=== PATIENT | female | born 1975 | race Caucasian/White ===

== ENCOUNTER → 2017-05-29 | Outpatient (CLI) | payer OTHER ==
[~2017-05-29] MED LIST: BEYAZ 28 TABLE1 EACH PO; LEVSIN0.125 MG PO; PROTONIX40 MG PO
--- NOTE | 2017-05-29 18:31 | Diagnostic Imaging Report ---
History: Syncope Comparison studies: None Technique: Sagittal T2; axial DWI, FLAIR, MPGR, T1, Coronal FLAIR. Intravenous contrast: None Findings: Scalp: Normal in signal . No masses . Bone marrow: Normal in signal intensity. Brain sulci: Prominent Ventricles: Normal in size . No hydrocephalus . Parenchyma: No abnormal signal. No masses, hemorrhage, acute or chronic vascular insults. Suprasellar region: No abnormalities. Craniocervical junction: Patent foramen magnum. No Chiari malformation . Vessels: Normal flow-voids in the arteries and sinuses. IMPRESSION: No acute intracranial abnormality. Mild generalized cerebral volume loss, advanced for patient's given age. Preliminary report was given by neuroradiology fellow Dr. Flores at 6:30 PM on 05/29/2017. I have reviewed the images and agree with the findings in the preliminary report. Signed by: Dr. Sarah Browne M.D. on 05/29/2017 8:09 PM
== END ==
LOC: MRI 17:13
PROVIDERS: ATTEND Family Medicine
DX: R55 Syncope and collapse (principal); R51 Headache; Z82.3 Family history of stroke
CPT/HCPCS: 70551

== ENCOUNTER 2017-07-29 11:54 | Emergency (ER) | payer OTHER ==
[~2017-07-29] VITALS: Ht 172.7 cm; Wt 78.5 kg
--- OUTSIDE RECORDS SUMMARY | 2017-07-29 11:57 | XMS REPORT ---
Author Author [facility] Address Unknown Phone Unavailable Care Team Providers Care Cull Grader Name Role Phone ELLIE ENG Unavailable Unavailable KATELIN RIVERA Unavailable Unavailable JEM MUSA Unavailable Unavailable Problems This patient has no known problems. Allergies, Adverse Reactions, Alerts This patient has no known allergies or adverse reactions. Medications This patient has no known medications. Results Test Description Test Time Test Comments Text Results Atomic Results Result Comments MRI BRAIN WO [place] [address] Patient Name: NANCY VELA MR #: [id number] : 1975 Age/Sex: 41/F Req # : [id number] Adm Physician: Ordered by: ELLIE ENG DO Report #: [id number] Location: MRI Room/Bed: Procedure: [id number] MRI/MRI BRAIN WO Exam Date: Exam Time: REPORT STATUS: Signed History: Syncope Comparison studies: None Technique: Sagittal T2; axial DWI, FLAIR, MPGR, T1, Coronal FLAIR. Intravenous contrast: None Findings: Scalp: Normal in signal . No masses . Bone marrow: Normal in signal intensity. Brain sulci: Prominent Ventricles: Normal in size . No hydrocephalus . Parenchyma: No abnormal signal. No masses, hemorrhage, acute or chronic vascular insults. Suprasellar region: No abnormalities. Craniocervical junction: Patent foramen magnum. No Chiari malformation . Vessels: Normal flow-voids in the arteries and sinuses. IMPRESSION: No acute intracranial abnormality. Mild generalized cerebral volume loss, advanced for patient's given age. Preliminary report was given by neuroradiology fellow Dr. Flores at 6:30 PM on 05/29/2017. I have reviewed the images and agree with the findings in the preliminary report. Signed by: Dr. Sarah Mcgregor M.D. on 05/29/2017 8:09 PM Dictated By: SARAH MCGREGOR MD 08 Transcribed By: PEDRO LUIS on 05/29/172008 COPY TO: ELLIE ENG DO CHEST 2 VIEWS [place] [address] Patient Name: NANCY VELA MR #: [id number] : 1975 Age/Sex: 41/F Req # : [id number] Adm Physician: Ordered by: KATELIN RIVERA MD Report #: [id number] Location: OR Room/Bed: Procedure: [id number] DX/CHEST 2 VIEWS Exam Date: 01/16/16 Exam Time : 949 REPORT STATUS: Signed PROCEDURE: X-RAY CHEST, TWO VIEWS COMPARISON: None. INDICATIONS: PREOPERATIVE CHEST XRAY FOR GALLBLADDER AND APPENDIX REMOVAL FINDINGS: LUNGS: No consolidations or edema. PLEURA: No effusions or pneumothorax. HEART MEDIASTINUM: The heart is within normal size-limits. BONES SOFT TISSUES: No acute findings. CONCLUSION: No acute thoracic abnormality. Americo Jc D.O. Dictated by: Americo Jc D.O. on 01/16/2016 at 10 :24 Electronically approved by: Americo Jc D.O. on 01/16/2016 at 10: 24 Dictated By: AMERICO JC DO 1010 Transcribed By: CLAUDIA on 01/16/16 1024 COPY TO: KATELIN RIVERA MD HEPTOBILIARY W PHARM [place] [address] Patient Name: NANCY VELA MR #: [id number] : 1975 Age/Sex: 41/F Req #: [id number] Adm Physician: Ordered by: JEM MUSA MD Report #: [id number] Location: [place] Room/Bed: Procedure: [id number] NM/HEPTOBILIARY W PHARM Exam Date: Exam Time: REPORT STATUS: Signed Hepatobiliary Scan with Gallbladder Ejection Fraction Clinical information: Abdominal pain; elevated liver enzymes Report: Following intravenous administration of approximately 5.5 millicuries of Tc-99m mebrofenin, dynamic images of the abdomen in the anterior projection were obtained through 30 minutes. Sincalide (CCK analog) 1.5 micrograms was administered intravenously over 30 minutes with additional imaging for determination of gallbladder ejection fraction. Perfusion to the liver is normal. Extraction of tracer from the blood pool by the liver parenchyma is normal. Tracer is seen promptly within the biliary tract. The gallbladder begins to fill by 15 minutes post- injection of tracer and fills adequately. Tracer is seen in the small bowel by 12 minutes. The gallbladder ejection fraction with administration of sincalide is 80% (normal greater than 40%). Impression: 1. Filling of the gallbladder excludes the diagnosis of acute cystic duct obstruction/acute cholecystitis. 2. Normal gallbladder ejection fraction of 80% does not support the clinical diagnosis of chronic cholecystitis/ gallbladder dyskinesia. Dictated By: JENNIFER EISENBERG MD 1503 Transcribed By: PEDRO LUIS on 09/23/14 1501 COPY TO: JEM MUSA MD
[2017-07-29] MEDS ORDERED: ONDANSETRON HCL INJ 2 MG/ML VIAL IV STA ×2 (12:03→14:00)
[2017-07-29] MEDS ORDERED: KETOROLAC TROMETHAMINE 30 MG/ML VIAL IV STA (12:03)
[2017-07-29] MEDS ORDERED: MORPHINE SULFATE 5 MG/ML VIAL IV ONE ×2 (12:15→13:45)
[2017-07-29] MEDS ORDERED: SODIUM CHLORIDE 0.9% 1000ML 1,000 ML IV SCH (12:15)
[2017-07-29] MEDS ORDERED: MORPHINE SULFATE 2 MG/ML SYR IV NR ×2 (12:30→14:00)
[2017-07-29] MEDS ORDERED: DICYCLOMINE HCL 20 MG/2 ML VIAL IM NR (12:45)
[2017-07-29 12:53] LABS: ALANINE AMINOTRANSFERASE 14 IU/L (0-55); ALBUMIN/GLOBULIN RATIO 0.9 (0.8-2.0); ALKALINE PHOSPHATASE 90 IU/L (40-150); ANION GAP 17.1 mmol/L (8-16); BLOOD UREA NITROGEN 14 mg/dL (7-26); BUN/CREATININE RATIO 12 (6-25); CARBON DIOXIDE 19 mmol/L (22-29); CHLORIDE 104 mmol/L (98-107); CREATININE, SERUM 1.13 mg/dL (0.57-1.11); EST GLOMERULAR FILTRATION RATE 53 ML/MIN (60-); GLUCOSE 130 mg/dL (74-118); POTASSIUM 4.1 mmol/L (3.5-5.1); SODIUM 136 mmol/L (136-145)
[2017-07-29 13:28] LABS: BASOPHILS % 0.2 % (0.0-1.0); EOSINOPHILS % 0.1 % (0.0-6.0); HEMATOCRIT 37.4 % (34.2-44.1); HEMOGLOBIN 12.6 g/dL (12.0-16.0); LYMPHOCYTES # (AUTO) 1.4 (1.0-3.2); LYMPHOCYTES % 11.7 % (18.0-39.1); MEAN CORPUSCULAR HEMOGLOBIN 30.1 pg (28-32); MEAN CORPUSCULAR HGB CONC 33.7 g/dL (31-35); MEAN CORPUSCULAR VOLUME 89.5 fL (81-99); MONOCYTES # (AUTO) 0.3 (0.2-0.8); MONOCYTES % 2.3 % (4.4-11.3); NEUTROPHILS # (AUTO) 10.5 (2.1-6.9); NEUTROPHILS % 85.4 % (38.7-80.0); PLATELET COUNT 230 x10e3/uL (140-360); RED BLOOD COUNT 4.18 x10e6/uL (3.6-5.1); RED CELL DISTRIBUTION WIDTH 13.1 % (11.7-14.4)
[2017-07-29 13:34] LABS: CLARITY,URINE CLEAR (CLEAR); COLOR,URINE YELLOW (YELLOW)
[2017-07-29 13:35] LABS: KETONES,URINE 2+ (NEGATIVE); LEUKOCYTE ESTERASE ,URINE NEGATIVE (NEGATIVE); NITRITE,URINE NEGATIVE (NEGATIVE); PROTEIN,URINE DIPSTICK NEGATIVE (NEGATIVE); URINE UROBILINOGEN 0.2 mg/dL (0.2 - 1)
[2017-07-29 13:36] LABS: BILIRUBIN,URINE NEGATIVE (NEGATIVE)
[2017-07-29 13:47] LABS: RBC,URINE 0-5 /HPF (0-5)
[2017-07-29 13:48] LABS: BACTERIA,URINE RARE /HPF; EPITHELIAL CELLS,URINE RARE /LPF
--- NOTE | 2017-07-29 14:43 | Diagnostic Imaging Report ---
PROCEDURE: CT ABDOMEN AND PELVIS WITHOUT CONTRAST COMPARISON:None. INDICATIONS:Right flank pain radiating to the lower quadrant. TECHNIQUE: Stone protocol Volumetric CT abdomen and pelvis. No intravenous or enteric contrast. Multiplanar reformatted images. DLP: 605.32 FINDINGS: Clear lung bases. No pleural effusions. Normal heart size. The liver, gallbladder, pancreas and spleen are normal. Adrenal glands, and urinary bladder and uterus are normal. Kidneys: Left: Normal. No stones. Right: Mild hydronephrosis and moderate hydroureter. 0.3 cm stone at the ureterovesicular junction (image 156, series 3). There is more prominent hydroureter at the proximal to mid segment extending to the level of the pelvic inlet, where the ureter extends posterior to a surgical clip (image 116, series 3). Bowel: Normal caliber. Appendectomy. Peritoneum: Normal Vasculature: Normal caliber Lymph nodes: Normal Skeleton: Intact. Soft tissues: Tiny fat containing umbilical hernia. 2 cm nodule at the posterior aspect of the right breast (image 14, series 3). CONCLUSION: 1. 0.3 cm stone at the right ureterovesicular junction. Associated moderate hydroureter and mild hydronephrosis. There is an interval change in the caliber of hydroureter at the level of the pelvic inlet, within a region of postoperative change likely associated with remote appendectomy. This may be a superimposed area of ureteral stenosis. 2. 2 cm right breast nodule. Please correlate with physical exam and diagnostic workup as clinically directed. Dictated by: Tristen Crane M.D. on 07/29/2017 at 14:44 Electronically approved by: Tristen Crane M.D. on 07/29/2017 at 14:44
[2017-07-29 16:20] VITALS: BP 103/67
== END 2017-07-29 16:07 | disposition home or self-care (01) ==
LOC: ER 11:56
DX: N13.2 Hydronephrosis with renal and ureteral calculous obstruction (principal); N63.10 Unspecified lump in the right breast, unspecified quadrant
CPT/HCPCS: 36415; 74176; 80053; 81001; 84702; 85025; 99284; J1885; J2270; J2405; J7030

== ENCOUNTER → 2017-08-15 | Day surgery (SDC) | payer OTHER ==
[~2017-08-15] MED LIST changes: +ACETAMINOPHEN 1000 MG/100 ML IV ONE; +CEFTRIAXONE SOD 1 GM VIAL ONE; +DEXAMETHASONE SOD PHOS INJ 4 MG/ML VIAL ONE; +FENTANYL CITRATE/PF 100MCG/2 ML INJ ONE; +IOPAMIDOL 610MG/1ML 300 MG/ML VIAL IV ONE; +KETOROLAC TROMETHAMINE 30 MG/ML VIAL ONE; +LIDOCAINE HCL 2% LOCAL INJ 5 ML SDV VIAL INJ ONE; +METOCLOPRAMIDE HCL 10 MG/2ML VIAL ONE; +MULTI-VITAMIN1 EACH PO; +ONDANSETRON HCL INJ 2 MG/ML VIAL ONE; +PROPOFOL IV EMULSION 10 MG/ML 20 ML VIAL ONE; +SEVOFLURANE INHAL SOLN 250 ML PEN BTL ONE; +VITAMIN B-121000 MCG PO
--- OUTSIDE RECORDS SUMMARY | 2017-08-15 08:20 | XMS REPORT | Continuity of Care Document ---
Author Author [facility] Organization [facility] Address [address] [place] [address] Phone Unavailable Care Team Providers Care Show Card Writer Name Role Phone ELLIE ENG DO PCP Insurance Providers Guarantor Yoli Vela Address [address] [place] [address] Email PT DECLINED Payer [employer] Policy Number [id number] Subscriber's Name Yoli Vela Relationship 18 Self / Same As Patient Group Number [id number] Group Name [employer]. Effective Date 14 Advance Directives Directive Response Recorded Date/Time Does the patient have an advance directive? No 01/05/07 6:38pm If yes, is [facility]? No 01/05/07 6:38pm If not on file with [facility] will patient provide a copy? No 11/12/10 5:27pm Do you have a Directive to Physician? No 07/29/17 1:14pm Do you have a Medical Power of [place] Supervisor? No 07/29/17 1:14pm Do you have an out of hospital Do Not Resuscitate Order? No 07/29/17 1:14pm Do you have any special needs we should be aware of? No 07/29/17 1:14pm Do you have a support person here with you today? Yes 07/29/17 1:14pm Did patient receive Notice of Privacy Practices? Yes 07/29/17 1:14pm Did patient receive patient rights and responsibilities? Yes 07/29/17 1:14pm Problems No problem information available. Medications Current Home Medications Medication Dose Units Route Directions Days Qty Instructions Start Date Drospir/Eth Estra/Levomefol Ca (Beyaz 28 Tablet) 1 Each Tablet Oral Daily Hyoscyamine Sulfate (Levsin) 0.125 Mg Tablet 0.375 Mg Oral Twice A Day Past Home Medications Medication Directions Ordered Status Pantoprazole Sodium (Protonix) 40 Mg Suspdr.pkt, 40 Mg Oral Daily Discontinued Social History Smoking Status Start Date Stop Date Never Smoker Hospital Discharge Instructions No hospital discharge instruction information available. Plan of Care Discharge Date 07/29/17 4:07pm Disposition HOME, SELF-CARE Condition at Discharge Stable Instructions/Education Provided Kidney Stones Forms Provided Work/School Excuse Prescriptions See Medication Section Referrals VELASQUEZELLIE DO Address: [address] [place], [place] [id number] Functional Status No functional status information available. Allergies, Adverse Reactions, Alerts No known allergies. Immunizations No immunization information available. Vital Signs Acute Vital Signs Vital Response Date/Time Pulse Pulse Rate (adult) 61 bpm (60 - 90) 07/29/2017 4:20pm Respiratory Rate 16 bpm (12 - 24) 07/29/2017 4:20pm Blood Pressure 103/67 mm Hg 07/29/2017 4:20pm Height 5 ft 8 in 07/29/2017 11:59am Weight 173 lb 07/29/2017 11:59am Body Mass Index 26.3 kg/m^2 07/29/2017 11:59am Results Laboratory Results Test Name Result Units Flags Reference Collection Date/Time Result Date/ Time Comments White Blood Count 12.30 x10e3/uL H 4.8-10.8 07/29/2017 1:21pm 2017 1:32pm Red Blood Count 4.18 x10e6/uL 3.6-5.1 07/29/2017 1:21pm 07/29/2017 1: 32pm Hemoglobin 12.6 g/dL 12.0-16.0 07/29/2017 1:21pm 07/29/2017 1:32pm Hematocrit 37.4 % 34.2-44.1 07/29/2017 1:07/29/2017 1:32pm Mean Corpuscular Volume 89.5 fL 81-99 07/29/2017 1:07/29/2017 1: 32pm Mean Corpuscular Hemoglobin 30.1 pg 28-32 07/29/2017 1:07/29/2017 1:32pm Mean Corpuscular Hemoglobin Concent 33.7 g/dL 31-35 07/29/2017 1:07/29/2017 1:32pm Red Cell Distribution Width 13.1 % 11.7-14.4 07/29/2017 1:2017 1:32pm Platelet Count 230 x10e3/uL 140-360 07/29/2017 1:07/29/2017 1: 32pm Neutrophils (%) (Auto) 85.4 % H 38.7-80.0 07/29/2017 1:07/29/2017 1 :32pm Lymphocytes (%) (Auto) 11.7 % L 18.0-39.1 07/29/2017 1:07/29/2017 1 :32pm Monocytes (%) (Auto) 2.3 % L 4.4-11.3 07/29/2017 1:07/29/2017 1: 32pm Eosinophils (%) (Auto) 0.1 % 0.0-6.0 07/29/2017 1:07/29/2017 1: 32pm Basophils (%) (Auto) 0.2 % 0.0-1.0 07/29/2017 1:07/29/2017 1:32pm IM GRANULOCYTES % 0.3 % 0.0-1.0 07/29/2017 1:07/29/2017 1:32pm Neutrophils # (Auto) 10.5 H 2.1-6.9 07/29/2017 1:07/29/2017 1: 32pm Lymphocytes # (Auto) 1.4 1.0-3.2 07/29/2017 1:07/29/2017 1:32pm Monocytes # (Auto) 0.3 0.2-0.8 07/29/2017 1:07/29/2017 1:32pm Eosinophils # (Auto) 0.0 0.0-0.4 07/29/2017 1:21pm 07/29/2017 1:32pm Basophils # (Auto) 0.0 0.0-0.1 07/29/2017 1:21pm 07/29/2017 1:32pm Absolute Immature Granulocyte (auto 0.04 x10e3/uL 0-0.1 07/29/2017 1: 21pm 07/29/2017 1:32pm Urine Color YELLOW YELLOW 07/29/2017 12:06pm 07/29/2017 1:36pm Urine Clarity CLEAR CLEAR 07/29/2017 12:06pm 07/29/2017 1:36pm Urine Specific [place] 1.030 H 1.010-1.025 07/29/2017 12:06pm 2017 1:36pm Urine pH 5 5 - 7 07/29/2017 12:06pm 07/29/2017 1:36pm Urine Leukocyte Esterase NEGATIVE NEGATIVE 07/29/2017 12:06pm 2017 1:36pm Urine Nitrite NEGATIVE NEGATIVE 07/29/2017 12:06pm 07/29/2017 1:36pm Urine Protein NEGATIVE NEGATIVE 07/29/2017 12:06pm 07/29/2017 1:36pm Urine Glucose (UA) NEGATIVE NEGATIVE 07/29/2017 12:06pm 07/29/2017 1: 36pm Urine Ketones 2+ H NEGATIVE 07/29/2017 12:06pm 07/29/2017 1:36pm Urine Urobilinogen 0.2 mg/dL 0.2 - 1 07/29/2017 12:06pm 07/29/2017 1: 36pm Urine Bilirubin NEGATIVE NEGATIVE 07/29/2017 12:06pm 07/29/2017 1: 36pm Urine Blood 1+ H NEGATIVE 07/29/2017 12:06pm 07/29/2017 1:36pm Urine WBC NONE /HPF 0-5 07/29/2017 12:06pm 07/29/2017 1:48pm Urine RBC 0-5 /HPF 0-5 07/29/2017 12:06pm 07/29/2017 1:48pm Urine Bacteria RARE /HPF NONE 07/29/2017 12:06pm 07/29/2017 1:48pm Urine Epithelial Cells RARE /LPF NONE 07/29/2017 12:06pm 07/29/2017 1: 48pm Sodium Level 136 mmol/L 136-145 07/29/2017 12:06pm 07/29/2017 12:55pm Potassium Level 4.1 mmol/L 3.5-5.1 07/29/2017 12:06pm 07/29/2017 12: 55pm Chloride Level 104 mmol/L 98-107 07/29/2017 12:06pm 07/29/2017 12:55pm Carbon Dioxide Level 19 mmol/L L 22-29 07/29/2017 12:06pm 07/29/2017 12: 55pm Anion Gap 17.1 mmol/L H 8-16 07/29/2017 12:06pm 07/29/2017 12:55pm Blood Urea Nitrogen 14 mg/dL 7-26 07/29/2017 12:06pm 07/29/2017 12: 55pm Creatinine 1.13 mg/dL H 0.57-1.11 07/29/2017 12:06pm 07/29/2017 12:55pm BUN/Creatinine Ratio 12 6-25 07/29/2017 12:06pm 07/29/2017 12:55pm Estimat Glomerular Filtration Rate 53 ML/MIN L 60- 07/29/2017 12:06pm 12:55pm Ranges were taken from the National Kidney Disease Education Program and the National Kidney Foundation literature. Reference ranges: 60 or greater: Normal 16-59 (for 3 consecutive months): Chronic kidney disease 15 or less: Kidney failure Glucose Level 130 mg/dL H 74-118 07/29/2017 12:06pm 07/29/2017 12:55pm Calcium Level 10.0 mg/dL 8.4-10.2 07/29/2017 12:06pm 07/29/2017 12: 55pm Total Bilirubin 0.3 mg/dL 0.2-1.2 07/29/2017 12:06pm 07/29/2017 12: 55pm Aspartate Amino Transf (AST/SGOT) 17 IU/L 5-34 07/29/2017 12:06pm 07/29 12:55pm Alanine Aminotransferase (ALT/SGPT) 14 IU/L 0-55 07/29/2017 12:06pm 01/2018 12:55pm Total Protein 8.4 g/dL H 6.5-8.1 07/29/2017 12:06pm 07/29/2017 12:55pm Albumin 4.0 g/dL 3.5-5.0 07/29/2017 12:06pm 07/29/2017 12:55pm Globulin 4.4 g/dL H 2.3-3.5 07/29/2017 12:06pm 07/29/2017 12:55pm Albumin/Globulin Ratio 0.9 0.8-2.0 07/29/2017 12:06pm 07/29/2017 12: 55pm Alkaline Phosphatase 90 IU/L 40-150 07/29/2017 12:06pm 07/29/2017 12: 55pm Human Chorionic Gonadotropin, Qual NEGATIVE NEGATIVE 07/29/2017 12: 06pm 07/29/2017 1:40pm Procedures Procedure Status Date Provider(s) Magnetic resonance imaging of brain without contrast Active 05/29/[address] of abdomen and pelvis without contrast Active 07/29/[address] MD Encounters Encounter Location Arrival/Admit Date Discharge/Depart Date Attending Provider Departed Emergency Room [facility] 07/29/17 11:56am 07/29 4:07pm LUCAS ST MD Registered Clinic [facility] 05/29/17 5:13pm ELLIE ENG DO
--- NOTE | 2017-08-15 13:33 | Operative Report ---
DATE OF PROCEDURE: August 15, 2017 PREOPERATIVE DIAGNOSIS 1. Microscopic hematuria. 2. Right ureteral calculus. POSTOPERATIVE DIAGNOSIS 1. Microscopic hematuria. 2. Right ureteral calculus. PROCEDURES 1. Cystourethroscopy with left ureteral catheterization and left retrograde pyelogram (entirely separate procedure for the diagnosis of microscopic hematuria). 2. Cystourethroscopy with extraction of right ureteral calculus (entirely separate procedure for the right ureteral calculus). 3. Supervision of fluoroscopy. 4. Interpretation of retrograde pyelography. ANESTHESIA: General. ESTIMATED BLOOD LOSS: Minimal. COMPLICATIONS: None. INDICATIONS FOR PROCEDURE: Ms. Aranda is a very pleasant 41-year-old female who had a CT scan showing a 2 mm distal right ureteral calculus. Patient is still symptomatic, and she has tried to pass this stone for over 3 weeks and has failed. She and I had a long discussion in regard to the alternatives, the risks and benefits, and due to intractable pain and a failure of a trial of passage, she elects to proceed with cystoscopy and retrograde pyelograms and possibly ureterocystoscopy. She voiced understanding of the options, alternatives, the risks and the benefits and elected to proceed. PROCEDURE IN DETAIL: After informed consent was obtained, the patient was taken to the operative suite. She was placed supine on the operating table, and she underwent general anesthesia by the anesthesia service. She was placed in the dorsal lithotomy position and sterilely prepped and draped in the standard fashion for cystoscopy. A 22.5-Sinhala cystoscope was inserted per urethra, and a normal urethra was noted. Panendoscopy of the bladder revealed no tumors, no stones. Both ureteral orifices were in their normal anatomical location and position. Bilateral retrograde pyelograms were performed. First, attention was turned to the left ureteral orifice, which was catheterized, and retrograde pyelogram was performed, which was normal. On the right ureteral orifice, there was a very small approximately 1 ureteral calculus at the ureteral orifice. Grasping forceps were utilized, grasped, but the stone completely fragmented. Small fragments of this were passed off the table and submitted as specimen on [facility]. At this time, the cone tip was inserted in the right ureteral orifice, and a retrograde pyelogram was performed. It revealed a delicate ureter, a delicate pelvicaliceal system. There was no evidence of filling defects, no evidence of hydronephrosis on the right remaining. At this time, the bladder was drained. The patient was awakened from anesthesia and transported to the recovery room in excellent condition. SUPERVISION OF FLUOROSCOPY AND INTERPRETATION OF RETROGRADE PYELOGRAPHY: I was present throughout the entire procedure, and I supervised fluoroscopy. There was no radiologist present at any time during this procedure. Attention was turned toward the left and right ureteral orifices, and they were catheterized with an 8-Sinhala cone-tipped catheter. In a retrograde fashion, contrast was injected, revealing delicate ureters and delicate pelvicaliceal systems, no evidence of filling defects, no evidence of hydronephrosis. IMPRESSION: Normal retrograde pyelograms. Job#: [id number] cc:ELLIE ENG DO
== END | disposition home or self-care (01) ==
LOC: OR 08:17
PROVIDERS: ATTEND Urology
PROC: BT14ZZZ Fluoroscopy of Kidneys, Ureters and Bladder (ICD-10-PCS; 2017-08-15)
PROC: 0TC68ZZ Extirpation of Matter from Right Ureter, Via Natural or Artificial Opening Endoscopic (ICD-10-PCS; principal; 2017-08-15 08:30)
DX: N20.1 Calculus of ureter (principal); N39.0 Urinary tract infection, site not specified; N13.39 Other hydronephrosis; Z84.1 Family history of disorders of kidney and ureter
CPT/HCPCS: 52320; 74420; 81025; 88300; C1758; J0696; J1100; J1885; J2001; J2405; J2765; Q9967

== ENCOUNTER → 2017-11-11 | Outpatient (CLI) | payer OTHER ==
[~2017-11-11] MED LIST changes: -ACETAMINOPHEN 1000 MG/100 ML IV ONE; -CEFTRIAXONE SOD 1 GM VIAL ONE; -DEXAMETHASONE SOD PHOS INJ 4 MG/ML VIAL ONE; -FENTANYL CITRATE/PF 100MCG/2 ML INJ ONE; +GADOBENATE DIMEGLUMINE 1 ML IV ONE; -IOPAMIDOL 610MG/1ML 300 MG/ML VIAL IV ONE; -KETOROLAC TROMETHAMINE 30 MG/ML VIAL ONE; -LIDOCAINE HCL 2% LOCAL INJ 5 ML SDV VIAL INJ ONE; -METOCLOPRAMIDE HCL 10 MG/2ML VIAL ONE; -ONDANSETRON HCL INJ 2 MG/ML VIAL ONE; -PROPOFOL IV EMULSION 10 MG/ML 20 ML VIAL ONE; -SEVOFLURANE INHAL SOLN 250 ML PEN BTL ONE
--- NOTE | 2017-11-11 10:37 | Diagnostic Imaging Report ---
PROCEDURE:X-RAY UNILATERAL RIBS WITH CHEST X-RAY COMPARISON:None. INDICATIONS:BACK FROM BACK FINDINGS: Lines: None. Lungs: The lungs are well inflated. No evidence of pneumonia or pulmonary edema. Heart and mediastinum: The cardiomediastinal silhouette is unremarkable. Bones: No acute bony findings. Dedicated rib radiographs demonstrate no evidence of displaced fracture. Upper abdomen: Cholecystectomy clips in the right upper quadrant. CONCLUSION: No evidence of displaced rib fracture. Clear lungs. Dictated by: IRA COOK M.D. on 11/11/2017 at 10:42 Electronically approved by: IRA COOK M.D. on 11/11/2017 at 10:42
--- NOTE | 2017-11-11 16:53 | Diagnostic Imaging Report ---
PROCEDURE: MRI ABDOMEN WOW TECHNIQUE: Axial T1 in and out of phase, axial T2, fat-sat, coronal, T2 with and without fat-sat, axial DWI, and ADC MR images of the abdomen were performed before the intravenous administration of 16 cc of gadolinium. Axial T1 and dynamic GRE images in precontrast, arterial, venous and delayed phases were performed, as well as subtraction images. Delayed post contrast axial ASSETT images were also obtained. COMPARISON: [facility], CT, CT ABDOMEN/PELVIS WO, 07/29/2017, 14:06. INDICATIONS: Right side pain, right rib cage tenderness FINDINGS: LOWER THORAX: Lung bases are clear. Stable 1.8 x 1.6 cm mildly T2 hyperintense, enhancing well-circumscribed, rounded lesion in the posterior aspect of the right breast (series 10, image 92 and series 5, image 4). LIVER: Normal hepatic size and contour. No hepatic signal abnormality. 5-7 mm T2 hyperintense, nonenhancing lesions in hepatic segments VIII, IV, I (series 6, images 8, 9, 14, and 16), consistent with simple cysts. No enhancing focal hepatic lesions. BILIARY: No intra-or extrahepatic biliary ductal dilation. Cholecystectomy clips. PANCREAS: No mass or ductal dilatation. SPLEEN: No splenomegaly. ADRENALS: No nodules. KIDNEYS: No hydronephrosis or enhancing mass in the imaged portion of the kidneys. GI TRACT: Visualized bowel shows no dilation or obstruction. PERITONEUM / RETROPERITONEUM: No upper abdominal free fluid. LYMPH NODES: No upper abdominal lymphadenopathy. VESSELS: The celiac trunk, superior and inferior mesenteric, and bilateral renal arteries are patent. Portal, superior mesenteric, and splenic veins are patent.. BONES AND SOFT TISSUES: No abnormal bone marrow signal. Mild dependent soft tissue edema posterior to the paraspinal muscles (for example series 5, image 40). IMPRESSION: 1. No acute abnormalities. Specifically, no acute findings in the right abdomen. No intra-or extrahepatic biliary ductal dilation or intraluminal filling defect. 2. Stable 1.8 cm enhancing well-circumscribed lesion in the posterior aspect of the right breast. Correlate with mammography. Crow Cobian M.D. Dictated by: Crow Cobian M.D. on 11/11/2017 at 16:58 Electronically approved by: Crow Cobian M.D. on 11/11/2017 at 16:58
== END ==
LOC: MRI 08:20
PROVIDERS: ATTEND Surgery
DX: R07.89 Other chest pain (principal); N63.10 Unspecified lump in the right breast, unspecified quadrant
CPT/HCPCS: 71101; 74183

== ENCOUNTER 2020-11-09 08:03 | Observation (INO) | payer OTHER ==
[2020-11-06 15:36] LABS: BASOPHILS % 0.7 % (0.0-1.0); EOSINOPHILS # (AUTO) 0.1 (0.0-0.4); EOSINOPHILS % 1.6 % (0.0-6.0); HEMATOCRIT 36.7 % (34.2-44.1); HEMOGLOBIN 11.9 g/dL (12.0-16.0); LYMPHOCYTES # (AUTO) 1.9 (1.0-3.2); LYMPHOCYTES % 32.6 % (18.0-39.1); MEAN CORPUSCULAR HEMOGLOBIN 30.2 pg (28-32); MEAN CORPUSCULAR HGB CONC 32.4 g/dL (31-35); MEAN CORPUSCULAR VOLUME 93.1 fL (81-99); MONOCYTES # (AUTO) 0.2 (0.2-0.8); MONOCYTES % 3.8 % (4.4-11.3); NEUTROPHILS # (AUTO) 3.5 (2.1-6.9); NEUTROPHILS % 61.1 % (38.7-80.0); PLATELET COUNT 237 x10e3/uL (140-360); RED BLOOD COUNT 3.94 x10e6/uL (3.6-5.1); RED CELL DISTRIBUTION WIDTH 13.1 % (11.7-14.4)
[2020-11-06 15:46] LABS: INR 0.93
[2020-11-06 15:47] LABS: PARTIAL THROMBOPLASTIN TIME 26.6 seconds (23.8-35.5)
[2020-11-06 15:51] LABS: ANION GAP 11.9 mmol/L (8-16); CALCIUM 8.9 mg/dL (8.4-10.2); CREATININE, SERUM 0.86 mg/dL (0.57-1.11); POTASSIUM 3.9 mmol/L (3.5-5.1)
[~2020-11-09] VITALS: Ht 172.7 cm; Wt 78.5 kg
[~2020-11-09 08:03] MED LIST changes: +ACETAMINOPHEN 1000 MG/100 ML 100 ML IV ONE; +GABAPENTIN300 MG PO; -GADOBENATE DIMEGLUMINE 1 ML IV ONE; +IBUPROFEN 800MG/ 200ML 200 ML IV ONE; +LIDOCAINE HCL (LTA) 4 ML SOLN ONE
[2020-11-09] MEDS ORDERED: THROMBIN FOR SOLN 5,000 UNIT VIAL ONE (08:45)
[2020-11-09] MEDS ORDERED: Vancomycin IV 1 GM VIAL ONE (08:45)
[2020-11-09] MEDS ORDERED: LIDOCAINE 1% W/EPINEPHRINE 20 ML VIAL ONE (08:45)
[2020-11-09] MEDS ORDERED: SODIUM CHLORIDE 0.9% 50ML 50 ML ONE (09:16)
[2020-11-09] MEDS ORDERED: HYDROCODON-ACE1 EA12 PO (11:51)
[2020-11-09] MEDS ORDERED: HYDROMORPHONE 2MG/ML 2 MG/ML ML IV PRN (12:00)
[2020-11-09] MEDS ORDERED: MORPHINE SULFATE 5 MG/ML VIAL IM PRN (12:00)
[2020-11-09] MEDS: LACTATED RINGER'S 1,000 ML IV SCH ×2 (12:00→17:26)
[2020-11-09] MEDS ORDERED: PROMETHAZINE HCL (IM) 25 MG/ML VIAL IM PRN (12:00)
[2020-11-09] MEDS ORDERED: ONDANSETRON HCL INJ 2MG/ML 2ML 2 MG/ML VIAL IV PRN (12:00)
[2020-11-09] MEDS ORDERED: MAGNESIUM/ALUMINUM/SIMETHICONE 30 ML UDC PO PRN (12:00)
[2020-11-09] MEDS ORDERED: ACETAMINOPHEN 325 MG TAB PO PRN (12:00)
[2020-11-09] MEDS ORDERED: CEPACOL SORE THROAT LOZENGES PO PRN (12:00)
[2020-11-09] MEDS ORDERED: MEPERIDINE HCL INJ 25 MG/ML VIAL ONE (12:06)
[2020-11-09] MEDS ORDERED: FENTANYL CITRATE/PF 100MCG/2 ML INJ ONE (12:07)
[2020-11-09] MEDS ORDERED: MIDAZOLAM HCL 2 MG/2 ML VIAL ONE (12:07)
[2020-11-09] MEDS ORDERED: HYDROMORPHONE 1MG/1ML INJ ONE (12:27)
[2020-11-09] MEDS ORDERED: ONDANSETRON HCL INJ 2MG/ML 2ML 2 MG/ML VIAL ONE ×2 (14:32→17:59)
[2020-11-09] MEDS ORDERED: METOCLOPRAMIDE HCL 10 MG/2ML VIAL ONE (14:33)
[2020-11-09 15:27] VITALS: BP 112/65
[2020-11-09 15:29] VITALS: BP 112/65
[2020-11-09 15:31] VITALS: BP 112/65
[2020-11-09] MEDS: CARISOPRODOL 350 MG TAB PO PRN (16:00)
[2020-11-09] MEDS: Cefazolin 1 GM in SODIUM CHLORIDE 0.9% 50ML 50 ML IV SCH (17:26)
[2020-11-09] MEDS ORDERED: SEVOFLURANE INHAL SOLN 250 ML PEN BTL ONE (17:59)
[2020-11-09] MEDS ORDERED: LIDOCAINE HCL 2% LOCAL INJ 5 ML SDV VIAL INJ ONE (17:59)
[2020-11-09] MEDS ORDERED: NEOSTIGMINE 1 MG/ML 10ML VIAL ONE (17:59)
[2020-11-09] MEDS ORDERED: LIDOCAINE HCL 2% JELLY 5 ML TUBE ONE (17:59)
[2020-11-09] MEDS ORDERED: PROPOFOL IV EMULSION 10 MG/ML 20 ML VIAL ONE (17:59)
[2020-11-09] MEDS ORDERED: GLYCOPYRROLATE INJ 0.2 MG/ML VIAL ONE (17:59)
[2020-11-09] MEDS ORDERED: ROCURONIUM BROMIDE 10 MG/ML 5ML VIAL IV ONE (17:59)
[2020-11-09] MEDS ORDERED: DEXAMETHASONE SOD PHOS INJ 4 MG/ML VIAL ONE (17:59)
[2020-11-09] MEDS: OXYCODONE/ACETAMINOPHEN 5-325 1 EACH TABLET PO PRN (20:15)
[2020-11-09 20:36] VITALS: BP 101/63
[2020-11-09] MEDS ORDERED: ZOLPIDEM TARTRATE 5 MG TAB PO PRN (21:00)
[2020-11-09 21:52] VITALS: BP 101/63
[2020-11-10 00:25] VITALS: BP 103/50
[2020-11-10] MEDS: Cefazolin 1 GM in SODIUM CHLORIDE 0.9% 50ML 50 ML IV SCH ×2 (01:48→09:00)
[2020-11-10 04:32] VITALS: BP 96/56
[2020-11-10 07:28] VITALS: BP 101/58
[2020-11-10 08:00] VITALS: BP 101/58
[2020-11-10] MEDS ORDERED: GABAPENTIN 300 MG CAP PO SCH (09:00)
[2020-11-10] MEDS: CARISOPRODOL 350 MG TAB PO PRN (09:00)
[2020-11-10] MEDS: OXYCODONE/ACETAMINOPHEN 5-325 1 EACH TABLET PO PRN (09:00)
[2020-11-10] MEDS ORDERED: ONDANSETRON HCL 4 MG ORAL DISINTEGRATING TAB PO PRN (09:45)
== END 2020-11-10 10:15 | disposition home or self-care (01) ==
LOC: OR 08:03 → PACU V 11:50 → IMCU 15:28
PROVIDERS: ADMIT Neurological Surgery; ATTEND Neurological Surgery
DX: M50.122 Cervical disc disorder at C5-C6 level with radiculopathy (principal); Z01.810 Encounter for preprocedural cardiovascular examination; Z01.812 Encounter for preprocedural laboratory examination; Z01.818 Encounter for other preprocedural examination; Z20.822 Contact with and (suspected) exposure to COVID-19
CPT/HCPCS: 20931; 22551; 22845; 36415; 71046; 80048; 85025; 85610; 85730; 86850; 86900; 88304; 88311; 93005; C1713 ×2; G0378 ×2; J0131; J0690 ×2; J1100; J1170; J2001 ×2; J2175; J2250; J2405; J2704; J2710; J2765; J3010; J3370; J7121; U0002; 77003